=== PATIENT | female | born 1990 | race Caucasian/White ===

== ENCOUNTER 2018-10-21 07:36 | Inpatient (IN) | payer OTHER ==
[2018-10-21] MEDS ORDERED: Ondansetron 4 MG/2 ML SDV IV PRN (08:22)
[2018-10-21] MEDS ORDERED: Misoprostol 400 MCG (4 X 100 MCG TAB) RECTAL PRN (08:22)
[2018-10-21] MEDS ORDERED: Tranexamic Acid 1,000 MG in Sodium Chloride 0.9% 100 ML IV PRN (08:22)
[2018-10-21] MEDS ORDERED: Lidocaine 1% 30 ML SDV INJECT PRN (08:22)
[2018-10-21] MEDS ORDERED: Sodium Chloride 0.9% 10 ML Syringe FLUSH PRN (08:22)
[2018-10-21] MEDS ORDERED: Carboprost Tromethamine 250 MCG/1 ML Amp IM PRN (08:22)
[2018-10-21] MEDS ORDERED: fentaNYL 100 MCG/2 ML SDV IVPUSH PRN (08:22)
[2018-10-21] MEDS ORDERED: Methylergonovine 0.2 MG/1 ML Amp IM PRN (08:22)
[2018-10-21] MEDS ORDERED: Lactated Ringers 500 ML IV ONE (08:22)
[2018-10-21] MEDS ORDERED: Buprenorphine 8 MG Tab.SL SL PRN (08:25)
--- NOTE | 2018-10-21 08:26 | PCM.LDHP ---
L&D History of Present Illness - General Date of Service: 10/21/18 Admit Problem/Dx: Patient Status Order with Admit Dx/Problem 10/21/18 08:22 Patient Status [ADT] Routine Admission Diagnosis/Problem Admission Diagnosis/Problem care Source of Information: Patient History Limitations: Reports: No Limitations - History of Present Illness Introduction:: 28-year-old at 39w1d presents to L&D for elective IOL at term. Patient is feeling well. She does continue to feel some [employer] [place] contractions off and on. Baby has been active. No new vaginal leaking or bleeding. was complicated by poor weight gain in the 1st and 2nd trimester, low lying placenta (resolved), Rh negative status, and suboxone therapy in . Patient is currently taking 12-16 mg suboxone daily. I have spoke to her suboxone provider regarding management intrapartum and . - Related Data Allergies/Adverse Reactions: Allergies Allergy/AdvReac Type Severity Reaction Status Date / Time No Known Allergies Allergy Verified 10/21/18 09:15 Home Medications: Home Meds Buprenorphine HCl 8 mg SL DAILY 09/01/18 [History] Pnv No.122/Iron/Folic Acid [ Multi Tablet] 1 each PO DAILY 09/01/18 [ History] Sertraline [Zoloft] 50 mg PO DAILY 09/01/18 [History] Acetaminophen [Tylenol] 650 mg PO Q4HR 10/21/18 [History] Past Medical History Respiratory History: Reports: Other (See Below) Other Respiratory History: reactive airway disease ANIMAL NURSE History: Reports: , Other (See Below) Other OB/BYN History: ovarian cyst, like endometrioma, fibrocystic breast Musculoskeletal History: Reports: Fibromyalgia, RA, Other (See Below) Other Musculoskeletal History: DDD, lumbar facet arthropathy, coccyx fx, displacement of lumbar disc without myelopathy Neurological History: Reports: Migraines Psychiatric History: Reports: Anxiety - Past Surgical History Female Surgical History: Reports: Other (See Below) Other Female Surgeries/Procedures: abnormal pap Neurological Surgical History: Reports: Other (See Below) Other Neurological Surgeries/Procedures: sciatica pain Social & Family History - Caffeine Use Caffeine Use: Reports: Soda - Living Situation & Occupation Living situation: Reports: Occupation: Employed H&P Review of Systems - Review of Systems: Review Of Systems: See Below General: Reports: No Symptoms HEENT: Reports: No Symptoms Pulmonary: Reports: No Symptoms Cardiovascular: Reports: No Symptoms Gastrointestinal: Reports: No Symptoms Genitourinary: Reports: No Symptoms Musculoskeletal: Reports: No Symptoms Skin: Reports: No Symptoms L&D Exam - Exam Exam: See Below - OB Specific Fundal Height In cm: 38 Contraction Intensity: Mild Movement: Active Heart Tones: Present Heart Tones per Min: 135 Heart Rate (FHR) Variability: Moderate (6-25 bmp) Presentation: Vertex - Robison Score Robison Score Cervix Position: Midposition Robison Score Consistency: Soft Robison Score Effacement: >80% Robison Score Dilation: 3-4 cm Robison Score 's Station: -1 ,0 Robison Score Total: 10 - Exam General: Alert, Oriented Lungs: Clear to Auscultation, Normal Respiratory Effort Cardiovascular: Regular Rate, Regular Rhythm. No: Systolic Murmur, Diastolic Murmur GI/Abdominal Exam: Soft Genitourinary: Normal external exam Extremities: No Pedal Edema Skin: Warm, Dry, Intact Psychiatric: Alert, Normal Affect, Normal Mood - Patient Data Result Diagrams: 10/21/18 07:54 - Problem List (1) care in third trimester SNOMED Code(s): 037264114, 82905374, 23266981, 362737360, 242506684 ICD Code: Z34.93 - ENCNTR FOR SUPRVSN OF NORMAL PREG, UNSP, THIRD TRIMESTER Status: Acute Current Visit: Yes (2) Rh negative state in antepartum period SNOMED Code(s): 454185340 ICD Code: O26.899 - OTH RELATED CONDITIONS, UNSPECIFIED TRIMESTER; Z67.91 - UNSPECIFIED BLOOD TYPE, RH NEGATIVE Status: Acute Current Visit: Yes (3) Suboxone maintenance treatment complicating , antepartum SNOMED Code(s): 691851774, 151742979 ICD Code: O99.320 - DRUG USE COMPLICATING , UNSPECIFIED TRIMESTER; F11.20 - OPIOID DEPENDENCE, UNCOMPLICATED Status: Acute Current Visit: Yes Problem List Initiated/Reviewed/Updated: Yes Orders Last 24hrs: Active Orders 24 hr Category Date Time Status Patient Status [ADT] Routine ADT 10/21/18 08:22 Ordered Communication Order [RC] ASDIRECTED Care 10/21/18 08:22 Ordered Heart Tones [RC] PER UNIT ROUTINE Care 10/21/18 08:22 Ordered Notify Provider Vital Signs OB [RC] ASDIRECTED Care 10/21/18 08:22 Ordered Notify Provider [RC] PRN Care 10/21/18 08:22 Ordered Pump Management, Intrathecal [RC] ASDIRECTED Care 10/21/18 08:22 Ordered Up ad Ashly [RC] ASDIRECTED Care 10/21/18 08:22 Ordered Vital Signs [RC] PER UNIT ROUTINE Care 10/21/18 08:22 Ordered Regular Diet [DIET] Diet 10/21/18 Lunch Ordered CBC W/O DIFF,HEMOGRAM [HEME] Routine Lab 10/21/18 08:22 Ordered Acetaminophen [Tylenol] Med 10/21/18 08:22 Ordered 650 mg PO Q4H PRN Buprenorphine [Subutex] Med 10/21/18 08:25 Ordered 4 mg SL Q6H PRN Carboprost Tromethamine [Hemabate DS] Med 10/21/18 08:22 Ordered 250 mcg IM ASDIRECTED PRN Lactated Ringers @ 125 MLS/HR(1000ml) Med 10/21/18 08:30 Ordered Lactated Ringers [Ringers, Lactated] 1,000 ml IV ASDIRECTED Lactated Ringers [Ringers, Lactated] 500 ml Med 10/21/18 08:22 Ordered IV .BOLUS Lidocaine 1% [Xylocaine-MPF 1%] Med 10/21/18 08:22 Ordered 30 ml INJECT ASDIRECTED PRN Methylergonovine [Methergine] Med 10/21/18 08:22 Ordered 0.2 mg IM ASDIRECTED PRN Ondansetron [Zofran] Med 10/21/18 08:22 Ordered 4 mg IV Q4H PRN Oxytocin 30 Units in NS @ 2 MUNITS/MIN(500ml) Med 10/21/18 08:30 Ordered Oxytocin/Normal Saline [Pitocin in NS 30 UNIT/500 ML] 30 unit in 500 ml IV TITRATE Sodium Chloride 0.9% [Saline Flush] Med 10/21/18 08:22 Ordered 10 ml FLUSH ASDIRECTED PRN Tranexamic Acid [Cyklokapron] 1,000 mg Med 10/21/18 08:22 Ordered Sodium Chloride 0.9% [Normal Saline] 100 ml IV ONETIME fentaNYL [Sublimaze] Med 10/21/18 08:22 Ordered 100 mcg IVPUSH Q1H PRN miSOPROStol [Cytotec] Med 10/21/18 08:22 Ordered 800 mcg RECTAL ASDIRECTED PRN Saline Lock Insert [OM.PC] Routine Oth 10/21/18 08:22 Ordered Resuscitation Status Routine Resus Stat 10/21/18 08:22 Ordered Medication Orders Acetaminophen (Tylenol) 650 mg PO Q4H PRN PRN Reason: Pain (Mild 1-3) and fever Carboprost Tromethamine (Hemabate Ds) 250 mcg IM ASDIRECTED PRN PRN Reason: HEMORRHAGE Fentanyl (Sublimaze) 100 mcg IVPUSH Q1H PRN PRN Reason: Pain (moderate 4-6) Lactated Ringer's (Ringers, Lactated) 500 mls @ 999 mls/hr IV .BOLUS ONE Stop: 10/21/18 08:52 Lactated Ringer's (Ringers, Lactated) 1,000 mls @ 125 mls/hr IV ASDIRECTED ZACKARY Lidocaine HCl (Xylocaine-Mpf 1%) 30 ml INJECT ASDIRECTED PRN PRN Reason: Perineal Repair Methylergonovine Maleate (Methergine) 0.2 mg IM ASDIRECTED PRN PRN Reason: Hemorrhage Misoprostol (Cytotec) 800 mcg RECTAL ASDIRECTED PRN PRN Reason: Hemorrhage Assessment/Plan Comment:: 28-year-old at 39w3d presenting for elective IOL 1. Initiate routine intrapartum orders 2. Initiate pitocin per protocol for induction of labor. Plan AROM when able. 3. For pain control, buprenorphine 4 mg every 6 hours as needed. Patient did take morning dose fo Suboxone. No Nubain for pain control. Fentanyl 100 mcg every hour. Patient may have intrathecal. 4. Expectant management. Anticipate . Nataliia Garcia MD
[2018-10-21] MEDS ORDERED: Lactated Ringers 1,000 ML IV SCH (08:30)
[2018-10-21] MEDS ORDERED: Oxytocin/Normal Saline 30 UNIT/500 ML BAG IV SCH (08:30)
[2018-10-21] MEDS: Acetaminophen 325 MG Tab PO PRN (15:19)
--- NOTE | 2018-10-21 16:13 | PCM.DEL ---
L & D Note - General Info Date of Service: 10/21/18 Mother's Due Date: 10/25/18 - Delivery Note Labor: Augmented by ARM, Induced by Oxytocin Cervical Ripening Method: Oxytocin Delivery Outcome: Livebirth Delivery Method: Spontaneous Vaginal Delivery-Single Infant Delivery Mode: Vacuum Extraction Presentation: Vertex Nuchal Cord: None Anesthesia Type: Local Anesthetic: Lidocaine (Xylocaine) 1% Plain Local Anesthetic Volume: Other (8 cc) Amniotic Fluid Description: Clear Episiotomy Type: None Laceration: 2nd Degree, Perineal Suture type: Vicryl Suture size: 3-0 Placenta: Intact, Spontaneous Cord: 3 Vessels Estimated Blood Loss: 300 Resuscitation Needed: Yes : Bulb Syringe, Stimulated, Warmed, Warmer Used Provider: Nataliia Garcia Score 1 min: 6 Score 5 min: 8 Delivery Comments (Free Text/Narrative):: 28-year-old, presented to L&D for IOL at 0730 due to history of complicated 2nd degree laceration repair with both previous deliveries. Pitocin was used for induction of labor. AROM was performed at 1225 for moderate amount of clear fluid. Patient rapidly progressed to complete dilation at 1330. Patient pushed for 20 minutes total. While baby was , decreased heart tones were noted and persisted fro >1 minutes. Thererfore, Kiwi vacuum was applied and used with one contraction to facilitate delivery. The anterior should delivered with some difficulty, then the rest of the body delivered very rapidly. was initially placed on mother's chest but needed further resuscitation so the cord was clamped x2 and cut, and baby was taken to the warmer. Apgars were noted to be 6 and 8 at 1 and 5 minutes respectively. Cord blood was collected. Perineum was inspected and a 2nd degree perineal laceration was noted. 8 mL of 1% lidocaine was used for anesthetic. The placenta then delivered spontaneously and intact. Uterus was noted to be firm. 2nd degree laceration was repaired in the usual fashion. Posterior aspect of the vaginal was noted to have moderate swelling. Uterus was again palpated and noted to be firm. Bleeding was appropriate. Patient tolerated the procedure well, and there were no immediate complications. Induction Criteria - Robison Score Robison Score Dilation: 3-4 cm Robison Score Effacement: >80% Robison Score Infant's Station: -1 ,0 Robison Score Consistency: Soft Robison Score Cervix Position: Midposition Robison Score Total: 10 Robison Score Presenting Part: Reports: Cephalic - Induction Gestational Age >/= 39 wks: Yes Estimated Pelvis: Reports: Adequate Reassuring Monitoring Strip: Yes Absence of Tachy Systole: Yes - Augmentation Estimated Pelvis: Reports: Adequate Weight Estimated:: Reports: AGA Reassuring Monitoring Strip: Yes Absence of Tachy Systole: Yes Vacuum Extractor Progress Note - Alternative Labor Strategies Considered Alternative Labor Strategies Considered:: Reports: No Indications Considered:: Reports: Yes Indications:: Reports: Suspicion of Immediate or Potential Compromise - Patient Prepared Patient Prepared:: Reports: Yes Informed Consent:: Reports: Verbal Risks: Reports: Yes Risks Include:: Reports: Laceration, Shoulder Dystocia, Maternal Injury - Probability of Success High Probability of Success:: Reports: Yes Weight Estimated:: Reports: AGA Patient Diabetic:: Reports: No Pelvis Adequate:: Reports: Yes Asynclitic:: Reports: No - Application Time Maximum Application Time & Number of Pop-Offs Predetermined:: Reports: Yes (3) Total Application Time (min): *max=20min: 2 Number of Times Cup Disengaged:: 1 Type of Vacuum Used:: Reports: Cup: Cronin type Vacuum Extraction: Successful - Exit Strategy Exit strategy available:: Reports: Yes and resuscitation teams readily available:: Reports: Yes - General Info Date of Service: 10/21/18 - Patient Data Vitals - Most Recent: Last Vital Signs Temp 36.1 C 10/21/18 13:39 Pulse 55 L 10/21/18 15:01 Resp 16 10/21/18 15:01 BP 115/80 10/21/18 15:01 Pulse Ox Weight - Most Recent: 69.4 kg I&O - Last 24 Hours: Intake & Output 10/21/18 10/21/18 10/21/18 06:59 14:59 22:59 Intake Total 1000 Balance 1000 Lab Results Last 24 Hours: Laboratory Results - last 24 hr 10/21/18 10/21/18 Range/Units 07:54 09:45 WBC 8.3 (5.0-10.0) 10^3/uL RBC 3.96 L (4.2-5.4) 10^6/uL Hgb 12.7 (12.0-16.0) g/dL Hct 37.5 (37.0-47.0) % MCV 94.7 D (80-100) fL MCH 32.1 (27.0-34.0) pg MCHC 33.9 (33.0-35.0) g/dL Plt Count 172 D (150-450) 10^3/uL Urine Opiates Screen Negative (NEGATIVE) Ur Oxycodone Screen Negative (NEGATIVE) Urine Methadone Screen Negative (NEGATIVE) Ur Barbiturates Screen Negative (NEGATIVE) U Tricyclic Antidepress Negative (NEGATIVE) Ur Phencyclidine Scrn Negative (NEGATIVE) Ur Amphetamine Screen Negative (NEGATIVE) U Methamphetamines Scrn Negative (NEGATIVE) Urine MDMA Screen Negative (NEGATIVE) U Benzodiazepines Scrn Negative (NEGATIVE) Urine Cocaine Screen Negative (NEGATIVE) U Marijuana (THC) Screen Negative (NEGATIVE) Med Orders - Current: Current Medications Acetaminophen (Tylenol) 650 mg PO Q4H PRN PRN Reason: Pain (Mild 1-3) and fever Last Admin: 10/21/18 15:19 Dose: 650 mg Buprenorphine (Subutex) 4 mg SL Q6H PRN PRN Reason: Pain Last Admin: 10/21/18 15:20 Dose: 4 mg Carboprost Tromethamine (Hemabate Ds) 250 mcg IM ASDIRECTED PRN PRN Reason: HEMORRHAGE Fentanyl (Sublimaze) 100 mcg IVPUSH Q1H PRN PRN Reason: Pain (moderate 4-6) Last Admin: 10/21/18 13:06 Dose: 100 mcg Lactated Ringer's (Ringers, Lactated) 1,000 mls @ 125 mls/hr IV ASDIRECTED ZACKARY Last Admin: 10/21/18 08:42 Dose: 125 mls/hr Oxytocin/Sodium Chloride (Pitocin In Ns 30 Unit/500 Ml) 30 unit in 500 mls @ 2 mls/hr IV TITRATE ZACKARY; Protocol Last Titration: 10/21/18 15:05 Dose: 125 munits/min, 125 mls/hr Tranexamic Acid 1,000 mg/ (Sodium Chloride) 110 mls @ 660 mls/hr IV ONETIME PRN PRN Reason: Bleeding Lidocaine HCl (Xylocaine-Mpf 1%) 30 ml INJECT ASDIRECTED PRN PRN Reason: Perineal Repair Last Admin: 10/21/18 14:03 Dose: 10 ml Methylergonovine Maleate (Methergine) 0.2 mg IM ASDIRECTED PRN PRN Reason: Hemorrhage Misoprostol (Cytotec) 800 mcg RECTAL ASDIRECTED PRN PRN Reason: Hemorrhage Ondansetron HCl (Zofran) 4 mg IV Q4H PRN PRN Reason: Nausea/Vomiting Sodium Chloride (Saline Flush) 10 ml FLUSH ASDIRECTED PRN PRN Reason: Keep Vein Open Discontinued Medications Lactated Ringer's (Ringers, Lactated) 500 mls @ 999 mls/hr IV .BOLUS ONE Stop: 10/21/18 08:52 - Problem List & Annotations (1) care in third trimester SNOMED Code(s): 166106350, 26863948, 46830485, 916191391, 335270499 Code(s): Z34.93 - ENCNTR FOR SUPRVSN OF NORMAL PREG, UNSP, THIRD TRIMESTER Status: Acute Current Visit: Yes (2) Rh negative state in antepartum period SNOMED Code(s): 470635298 Code(s): O26.899 - OTH RELATED CONDITIONS, UNSPECIFIED TRIMESTER; Z67.91 - UNSPECIFIED BLOOD TYPE, RH NEGATIVE Status: Acute Current Visit: Yes (3) Suboxone maintenance treatment complicating , antepartum SNOMED Code(s): 712787543, 682001902 Code(s): O99.320 - DRUG USE COMPLICATING , UNSPECIFIED TRIMESTER; F11.20 - OPIOID DEPENDENCE, UNCOMPLICATED Status: Acute Current Visit: Yes (4) Status post vacuum-assisted vaginal delivery SNOMED Code(s): 419292295, 63158675036150199 Code(s): Z87.59 - PERSONAL HISTORY OF COMP OF PREG, CHLDBRTH AND THE PUERP Status: Acute Current Visit: Yes (5) Perineal laceration during delivery, delivered SNOMED Code(s): 983959992 Code(s): O70.9 - PERINEAL LACERATION DURING DELIVERY, UNSPECIFIED Status: Acute Current Visit: Yes - Problem List Review Problem List Initiated/Reviewed/Updated: Yes - My Orders Last 24 Hours: My Active Orders 10/21/18 08:22 Patient Status [ADT] Routine Notify Provider Vital Signs OB [RC] ASDIRECTED Notify Provider [RC] PRN Up ad Ashly [RC] ASDIRECTED Vital Signs [RC] 08,20 Acetaminophen [Tylenol] 650 mg PO Q4H PRN Carboprost Tromethamine [Hemabate DS] 250 mcg IM ASDIRECTED PRN Lidocaine 1% [Xylocaine-MPF 1%] 30 ml INJECT ASDIRECTED PRN Methylergonovine [Methergine] 0.2 mg IM ASDIRECTED PRN Ondansetron [Zofran] 4 mg IV Q4H PRN Sodium Chloride 0.9% [Saline Flush] 10 ml FLUSH ASDIRECTED PRN Tranexamic Acid [Cyklokapron] 1,000 mg Sodium Chloride 0.9% [Normal Saline] 100 ml IV ONETIME fentaNYL [Sublimaze] 100 mcg IVPUSH Q1H PRN miSOPROStol [Cytotec] 800 mcg RECTAL ASDIRECTED PRN Saline Lock Insert [OM.PC] Routine Resuscitation Status Routine 10/21/18 08:25 Buprenorphine [Subutex] 4 mg SL Q6H PRN 10/21/18 08:30 Lactated Ringers [Ringers, Lactated] 1,000 ml IV ASDIRECTED Oxytocin/Normal Saline [Pitocin in NS 30 UNIT/500 ML] 30 unit in 500 ml IV TITRATE 10/21/18 09:00 Communication Order [RC] PER UNIT ROUTINE 10/21/18 Lunch Regular Diet [DIET] - Assessment Assessment:: 28-year-old, now , status post VAVD at 39w3d - Plan Plan:: 1. Initiate routine orders 2. Plans to breastfeed 3. For pain control, Tylenol and ibuprofen as scheduled. Suboxone 4 mg every 4- 6 hours with a max dose of 24 mg in 24 hours. 4. Anticipate discharge 10/23/18. Nataliia Garcia MD
[2018-10-21] MEDS ORDERED: Simethicone 80 MG Tab.Chew PO PRN (16:21)
[2018-10-21] MEDS ORDERED: Benzocaine/Menthol 20%-0.5% Spray 56 GM Canister TOP PRN (16:21)
[2018-10-21] MEDS ORDERED: Oxytocin 10 Units/1 ML SDV IM PRN (16:21)
[2018-10-21] MEDS: Docusate Sodium 100 MG Cap PO PRN (18:03)
[2018-10-21] MEDS: Ibuprofen 800 MG Tab PO PRN (18:03)
[2018-10-22] MEDS: Acetaminophen 325 MG Tab PO PRN ×3 (01:05→19:56)
--- NOTE | 2018-10-22 05:39 | PCM.PNPP ---
- General Info Date of Service: 10/22/18 Subjective Update: 28-year-old PPD#1 status post VAVD after IOL at 39w3d. Patient is doing well. Some back pain and cramping, especially with . Bleeding has been slowing down. Ambulating without difficulty. Tolerating a general diet. No dizziness, lightheadedness, fever or chills. has been a struggle to maintain good latch. Does complain of nipple pain. Has done some SNS at the breast. No concerns per patient or per nursing staff. Functional Status: Reports: Pain Controlled, Tolerating Diet, Ambulating, Urinating - Review of Systems General: Reports: No Symptoms HEENT: Reports: No Symptoms Pulmonary: Reports: No Symptoms Cardiovascular: Reports: No Symptoms Gastrointestinal: Reports: Other (Cramping with ) Genitourinary: Reports: No Symptoms Musculoskeletal: Reports: Back Pain Skin: Reports: No Symptoms - General Info Date of Service: 10/22/18 - Patient Data Vital Signs - Most Recent: Last Vital Signs Temp 36.7 C 10/21/18 19:41 Pulse 59 L 10/21/18 19:41 Resp 18 10/21/18 19:41 BP 123/76 10/21/18 19:41 Pulse Ox Weight - Most Recent: 69.4 kg I&O - Last 24 Hours: Intake & Output 10/21/18 10/21/18 10/22/18 14:59 22:59 06:59 Intake Total 1000 1500 Output Total 700 Balance 1000 800 Lab Results - Last 24 Hours: Laboratory Results - last 24 hr 10/21/18 10/21/18 Range/Units 07:54 09:45 WBC 8.3 (5.0-10.0) 10^3/uL RBC 3.96 L (4.2-5.4) 10^6/uL Hgb 12.7 (12.0-16.0) g/dL Hct 37.5 (37.0-47.0) % MCV 94.7 D (80-100) fL MCH 32.1 (27.0-34.0) pg MCHC 33.9 (33.0-35.0) g/dL Plt Count 172 D (150-450) 10^3/uL Urine Opiates Screen Negative (NEGATIVE) Ur Oxycodone Screen Negative (NEGATIVE) Urine Methadone Screen Negative (NEGATIVE) Ur Barbiturates Screen Negative (NEGATIVE) U Tricyclic Antidepress Negative (NEGATIVE) Ur Phencyclidine Scrn Negative (NEGATIVE) Ur Amphetamine Screen Negative (NEGATIVE) U Methamphetamines Scrn Negative (NEGATIVE) Urine MDMA Screen Negative (NEGATIVE) U Benzodiazepines Scrn Negative (NEGATIVE) Urine Cocaine Screen Negative (NEGATIVE) U Marijuana (THC) Screen Negative (NEGATIVE) Med Orders - Current: Current Medications Acetaminophen (Tylenol) 650 mg PO Q4H PRN PRN Reason: Pain (Mild 1-3) and fever Last Admin: 10/22/18 01:05 Dose: 650 mg Benzocaine/Menthol (Dermoplast Pain Relief [place]) 0 gm TOP Q4H PRN PRN Reason: Perineal comfort measures Last Admin: 10/21/18 18:03 Dose: 1 spray Buprenorphine (Subutex) 4 mg SL Q4H PRN PRN Reason: Withdrawal Symptoms Carboprost Tromethamine (Hemabate Ds) 250 mcg IM ASDIRECTED PRN PRN Reason: HEMORRHAGE Docusate Sodium (Colace) 100 mg PO BID PRN PRN Reason: Constipation Last Admin: 10/21/18 18:03 Dose: 100 mg Oxytocin/Sodium Chloride (Pitocin In Ns 30 Unit/500 Ml) 30 unit in 500 mls @ 2 mls/hr IV TITRATE ZACKARY; Protocol Last Titration: 10/21/18 16:13 Dose: Infused Tranexamic Acid 1,000 mg/ (Sodium Chloride) 110 mls @ 660 mls/hr IV ONETIME PRN PRN Reason: Bleeding Ibuprofen (Motrin) 800 mg PO Q8H PRN PRN Reason: Mild Pain or Fever Last Admin: 10/21/18 18:03 Dose: 800 mg Methylergonovine Maleate (Methergine) 0.2 mg IM ASDIRECTED PRN PRN Reason: Hemorrhage Misoprostol (Cytotec) 800 mcg RECTAL ASDIRECTED PRN PRN Reason: Hemorrhage Ondansetron HCl (Zofran) 4 mg IV Q4H PRN PRN Reason: Nausea/Vomiting Oxytocin (Pitocin) 10 unit IM ONETIME PRN PRN Reason: Bleeding Patient Own Medication (Ptom) 4 each PO Q4H [facility] Prenat Multivit/[place]/Iron/Folic Ac ( Plus Iron) 1 each PO DAILY [facility] Simethicone (Simethicone) 80 mg PO Q4H PRN PRN Reason: Gas Sodium Chloride (Saline Flush) 10 ml FLUSH ASDIRECTED PRN PRN Reason: Keep Vein Open Discontinued Medications Buprenorphine (Subutex) 4 mg SL Q6H PRN PRN Reason: Pain Last Admin: 10/21/18 15:20 Dose: 4 mg Fentanyl (Sublimaze) 100 mcg IVPUSH Q1H PRN PRN Reason: Pain (moderate 4-6) Last Admin: 10/21/18 13:06 Dose: 100 mcg Lactated Ringer's (Ringers, Lactated) 500 mls @ 999 mls/hr IV .BOLUS ONE Stop: 10/21/18 08:52 Last Admin: 10/21/18 18:26 Dose: Not Given Lactated Ringer's (Ringers, Lactated) 1,000 mls @ 125 mls/hr IV ASDIRECTED ZACKARY Last Admin: 10/21/18 08:42 Dose: 125 mls/hr Lidocaine HCl (Xylocaine-Mpf 1%) 30 ml INJECT ASDIRECTED PRN PRN Reason: Perineal Repair Last Admin: 10/21/18 14:03 Dose: 10 ml - Interaction Disposition, : in Room with Family Infant Interaction: Holding Infant Feeding: Attempted ; Nursed Fair/Poor Support Person: - Recovery Exam Fundal Tone: Firm Fundal Level: At Umbilicus Fundal Placement: Midline Lochia Amount: Scant Lochia Color: Rubra/Red Perineum Description: Intact, Minimal Bruising/Swelling Episiotomy/Laceration: Approximated Bladder Status: Nonpalpable Urinary Elimination: Voided - Exam General: Alert, Oriented Lungs: Clear to Auscultation, Normal Respiratory Effort Cardiovascular: Regular Rate, Regular Rhythm, No Murmurs Extremities: Normal Inspection, Pedal Edema (1+ to lower extremities bilaterally ) Skin: Warm, Dry, Intact - Problem List & Annotations (1) care in third trimester SNOMED Code(s): 498847782, 46816262, 57314571, 738863461, 231527950 Code(s): Z34.93 - ENCNTR FOR SUPRVSN OF NORMAL PREG, UNSP, THIRD TRIMESTER Status: Acute Current Visit: Yes (2) Rh negative state in antepartum period SNOMED Code(s): 357348014 Code(s): O26.899 - OTH RELATED CONDITIONS, UNSPECIFIED TRIMESTER; Z67.91 - UNSPECIFIED BLOOD TYPE, RH NEGATIVE Status: Acute Current Visit: Yes (3) Suboxone maintenance treatment complicating , antepartum SNOMED Code(s): 604766869, 016797809 Code(s): O99.320 - DRUG USE COMPLICATING , UNSPECIFIED TRIMESTER; F11.20 - OPIOID DEPENDENCE, UNCOMPLICATED Status: Acute Current Visit: Yes (4) Status post vacuum-assisted vaginal delivery SNOMED Code(s): 855941058, 72494766543750801 Code(s): Z87.59 - PERSONAL HISTORY OF COMP OF PREG, CHLDBRTH AND THE PUERP Status: Acute Current Visit: Yes (5) Perineal laceration during delivery, delivered SNOMED Code(s): 273578149 Code(s): O70.9 - PERINEAL LACERATION DURING DELIVERY, UNSPECIFIED Status: Acute Current Visit: Yes - Problem List Review Problem List Initiated/Reviewed/Updated: Yes - My Orders Last 24 Hours: My Active Orders 10/21/18 08:22 Patient Status [ADT] Routine Notify Provider Vital Signs OB [RC] ASDIRECTED Up ad Ashly [RC] ASDIRECTED Acetaminophen [Tylenol] 650 mg PO Q4H PRN Carboprost Tromethamine [Hemabate DS] 250 mcg IM ASDIRECTED PRN Methylergonovine [Methergine] 0.2 mg IM ASDIRECTED PRN Ondansetron [Zofran] 4 mg IV Q4H PRN Sodium Chloride 0.9% [Saline Flush] 10 ml FLUSH ASDIRECTED PRN Tranexamic Acid [Cyklokapron] 1,000 mg Sodium Chloride 0.9% [Normal Saline] 100 ml IV ONETIME miSOPROStol [Cytotec] 800 mcg RECTAL ASDIRECTED PRN Saline Lock Insert [OM.PC] Routine Resuscitation Status Routine 10/21/18 08:30 Oxytocin/Normal Saline [Pitocin in NS 30 UNIT/500 ML] 30 unit in 500 ml IV TITRATE 10/21/18 09:00 Communication Order [RC] PER UNIT ROUTINE 10/21/18 16:21 Vital Signs [RC] 08,20 Consult to Waste Management Specialist [CONS] Routine Benzocaine/Menthol [Dermoplast Pain Relief [place]] See Dose Instructions TOP Q4H PRN Docusate Sodium [Colace] 100 mg PO BID PRN Ibuprofen [Motrin] 800 mg PO Q8H PRN Oxytocin [Pitocin] 10 unit IM ONETIME PRN Simethicone 80 mg PO Q4H PRN Assess Lochia [WOMSER] Per Unit Routine Assess Uterine Involution [WOMSER] Per Unit Routine Breast Pump [WOMSER] Per Unit Routine Ice Therapy [OM.PC] Per Unit Routine Perineal Care [OM.PC] Per Unit Routine Sitz Bath [OM.PC] Per Unit Routine 10/21/18 16:30 Patient's Own Medication [Ptom] 4 each PO Q4H 10/21/18 17:43 Buprenorphine [Subutex] 4 mg SL Q4H PRN 10/21/18 18:18 RHOGAM, [RHIG WORKUP, ] [BBK] Routine 10/21/18 Lunch Regular Diet [DIET] 10/22/18 09:00 Vit with Ca/FA/Iron [ Plus Iron] 1 each PO DAILY - Assessment Assessment:: 28-year-old, now , PPD#1 status post VAVD at 39w3d - Plan Plan:: 1. Continue routine orders 2. . consult placed 3. For pain control, Tylenol and ibuprofen as scheduled. Suboxone 4 mg every 4- 6 hours with a max dose of 24 mg in 24 hours. 4. Anticipate discharge 10/23/18. Nataliia Garcia MD
[2018-10-22] MEDS: Ibuprofen 800 MG Tab PO PRN ×2 (06:25→17:43)
[2018-10-22] MEDS: Buprenorphine 8 MG Tab.SL SL PRN ×3 (06:26→17:43)
[2018-10-22] MEDS: Prenatal Multivitamin with Calcium/Folic Acid/Iron Tab PO SCH (12:06)
[2018-10-22] MEDS: Docusate Sodium 100 MG Cap PO PRN (12:08)
[2018-10-23] MEDS: Buprenorphine 8 MG Tab.SL SL PRN ×3 (01:35→13:48)
[2018-10-23] MEDS: Ibuprofen 800 MG Tab PO PRN ×3 (01:36→19:55)
--- NOTE | 2018-10-23 08:24 | PCM.DCSUM1 ---
Discharge Summary - Hospital Course Free Text/Narrative:: 28-year-old now PPD#2 status post VAVD at 39w3d gestation Diagnosis: Stroke: No - Discharge Data Discharge Date: 10/23/18 Discharge Disposition: Home, Self-Care 01 Condition: Good - Discharge Diagnosis/Problem(s) (1) care in third trimester SNOMED Code(s): 928020410, 43703288, 98828064, 391030145, 037321452 ICD Code: Z34.93 - ENCNTR FOR SUPRVSN OF NORMAL PREG, UNSP, THIRD TRIMESTER Status: Acute Current Visit: Yes (2) Rh negative state in antepartum period SNOMED Code(s): 964508874 ICD Code: O26.899 - OTH RELATED CONDITIONS, UNSPECIFIED TRIMESTER; Z67.91 - UNSPECIFIED BLOOD TYPE, RH NEGATIVE Status: Acute Current Visit: Yes (3) Suboxone maintenance treatment complicating , antepartum SNOMED Code(s): 742627299, 509675972 ICD Code: O99.320 - DRUG USE COMPLICATING , UNSPECIFIED TRIMESTER; F11.20 - OPIOID DEPENDENCE, UNCOMPLICATED Status: Acute Current Visit: Yes (4) Status post vacuum-assisted vaginal delivery SNOMED Code(s): 118318172, 82369492811891592 ICD Code: Z87.59 - PERSONAL HISTORY OF COMP OF PREG, CHLDBRTH AND THE PUERP Status: Acute Current Visit: Yes (5) Perineal laceration during delivery, delivered SNOMED Code(s): 084862391 ICD Code: O70.9 - PERINEAL LACERATION DURING DELIVERY, UNSPECIFIED Status: Acute Current Visit: Yes - Patient Summary/Data Operative Procedure(s) Performed: Vacuum-assisted vaginal delivery Complications: None Consults: Consultations 10/21/18 16:21 Consult to Patient Access Associate [CONS] Routine Labs Pending at D/C: None Recommended Follow-up Testing/Procedures: None Planned Operative Procedure(s) after DC: None Hospital Course: Unremarkable. Please see subjective section. - Patient Instructions Diet: Usual Diet as Tolerated Activity: As Tolerated, No Lifting Over 20 Pounds Driving: May Drive Today Showering/Bathing: May Shower Notify Provider of: Fever, Increased Pain, Swelling and Redness, Drainage, Nausea and/or Vomiting - Discharge Plan *PRESCRIPTION DRUG MONITORING PROGRAM REVIEWED*: Yes *COPY OF PRESCRIPTION DRUG MONITORING REPORT IN PATIENT CONI: No Home Medications: Home Meds Buprenorphine HCl 8 mg SL DAILY 09/01/18 [History] Pnv No.122/Iron/Folic Acid [ Multi Tablet] 1 each PO DAILY 09/01/18 [ History] Sertraline [Zoloft] 50 mg PO DAILY 09/01/18 [History] Acetaminophen [Tylenol] 650 mg PO Q4H PRN tablet 10/23/18 [Rx] Docusate Sodium [Colace] 100 mg PO BID PRN cap 10/23/18 [Rx] Ibuprofen [Motrin] 800 mg PO Q8H PRN tablet 10/23/18 [Rx] - Discharge Summary/Plan Comment DC Time >30 min.: No Discharge Summary/Plan Comment: Discharge patient today. She will remain in the hospital with her baby daughter , who will repeat hospitalized until tomorrow. She will resume her Suboxone upon discharge take 4 mg by mouth as needed every 4-6 hours with a max dose of 24 mg in 24 hours. Follow-up in 6-8 weeks for routine exam - General Info Date of Service: 10/23/18 Subjective Update: 28-year-old PPD#2 status post VAVD after IOL at 39w3d. Patient is doing well. Back pain has improved. Still some cramping with . Bleeding has been slowing down. Ambulating without difficulty. Tolerating a general diet. No dizziness, lightheadedness, fever or chills. has improved over he past 24 hours. No concerns per patient or per nursing staff. Functional Status: Reports: Pain Controlled, Tolerating Diet, Ambulating, Urinating. Denies: New Symptoms - Review of Systems General: Reports: No Symptoms HEENT: Reports: No Symptoms Pulmonary: Reports: No Symptoms Cardiovascular: Reports: No Symptoms Gastrointestinal: Reports: No Symptoms Genitourinary: Reports: No Symptoms Musculoskeletal: Reports: No Symptoms - Patient Data Vitals - Most Recent: Last Vital Signs Temp 36.7 C 10/22/18 20:00 Pulse 55 L 10/22/18 20:00 Resp 16 10/22/18 20:00 BP 119/69 10/22/18 20:00 Pulse Ox Weight - Most Recent: 69.4 kg Med Orders - Current: Current Medications Acetaminophen (Tylenol) 650 mg PO Q4H PRN PRN Reason: Pain (Mild 1-3) and fever Last Admin: 10/22/18 19:56 Dose: 650 mg Benzocaine/Menthol (Dermoplast Pain Relief [place]) 0 gm TOP Q4H PRN PRN Reason: Perineal comfort measures Last Admin: 10/21/18 18:03 Dose: 1 spray Buprenorphine (Subutex) 4 mg SL Q4H PRN PRN Reason: Withdrawal Symptoms Last Admin: 10/23/18 01:35 Dose: 4 mg Carboprost Tromethamine (Hemabate Ds) 250 mcg IM ASDIRECTED PRN PRN Reason: HEMORRHAGE Docusate Sodium (Colace) 100 mg PO BID PRN PRN Reason: Constipation Last Admin: 10/22/18 12:08 Dose: 100 mg Oxytocin/Sodium Chloride (Pitocin In Ns 30 Unit/500 Ml) 30 unit in 500 mls @ 2 mls/hr IV TITRATE ZACKARY; Protocol Last Titration: 10/21/18 16:13 Dose: Infused Tranexamic Acid 1,000 mg/ (Sodium Chloride) 110 mls @ 660 mls/hr IV ONETIME PRN PRN Reason: Bleeding Ibuprofen (Motrin) 800 mg PO Q8H PRN PRN Reason: Mild Pain or Fever Last Admin: 10/23/18 01:36 Dose: 800 mg Methylergonovine Maleate (Methergine) 0.2 mg IM ASDIRECTED PRN PRN Reason: Hemorrhage Misoprostol (Cytotec) 800 mcg RECTAL ASDIRECTED PRN PRN Reason: Hemorrhage Ondansetron HCl (Zofran) 4 mg IV Q4H PRN PRN Reason: Nausea/Vomiting Oxytocin (Pitocin) 10 unit IM ONETIME PRN PRN Reason: Bleeding Prenat Multivit/Motor Builder Assembler/Iron/Folic Ac ( Plus Iron) 1 each PO DAILY ZACKARY Last Admin: 10/22/18 12:06 Dose: 1 each Simethicone (Simethicone) 80 mg PO Q4H PRN PRN Reason: Gas Sodium Chloride (Saline Flush) 10 ml FLUSH ASDIRECTED PRN PRN Reason: Keep Vein Open Discontinued Medications Buprenorphine (Subutex) 4 mg SL Q6H PRN PRN Reason: Pain Last Admin: 10/21/18 15:20 Dose: 4 mg Fentanyl (Sublimaze) 100 mcg IVPUSH Q1H PRN PRN Reason: Pain (moderate 4-6) Last Admin: 10/21/18 13:06 Dose: 100 mcg Lactated Ringer's (Ringers, Lactated) 500 mls @ 999 mls/hr IV .BOLUS ONE Stop: 10/21/18 08:52 Last Admin: 10/21/18 18:26 Dose: Not Given Lactated Ringer's (Ringers, Lactated) 1,000 mls @ 125 mls/hr IV ASDIRECTED ZACKARY Last Admin: 10/21/18 08:42 Dose: 125 mls/hr Lidocaine HCl (Xylocaine-Mpf 1%) 30 ml INJECT ASDIRECTED PRN PRN Reason: Perineal Repair Last Admin: 10/21/18 14:03 Dose: 10 ml Patient Own Medication (Ptom) 4 each PO Q4H ZACKARY - Exam General: Reports: Alert, Oriented Lungs: Reports: Clear to Auscultation, Normal Respiratory Effort Cardiovascular: Reports: Regular Rate, Regular Rhythm, No Murmurs GI/Abdominal Exam: Soft Extremities: No Pedal Edema Skin: Reports: Warm, Dry, Intact
[2018-10-23] MEDS: Patient's Own Medication 1 Each PO SCH ×2 (08:40→08:41)
[2018-10-23] MEDS: Docusate Sodium 100 MG Cap PO PRN ×2 (09:38→19:55)
[2018-10-23] MEDS: Prenatal Multivitamin with Calcium/Folic Acid/Iron Tab PO SCH (09:38)
[2018-10-23] MEDS: Acetaminophen 325 MG Tab PO PRN ×2 (13:47→23:16)
[2018-10-24 01:01] VITALS: BP 122/69
== END 2018-10-23 23:45 | disposition home or self-care (01) | DRG 806 ==
LOC: DL.OBPROC 07:36 → DL.OB 08:22 → UNDOADMOB 08:29 → DL.OB 08:29 → OBSVTOIN 13:58 → DL.MS 10-23 01:33
PROVIDERS: ADMIT Family Medicine; ATTEND Family Medicine
PROC: 10D07Z6 Extraction of Products of Conception, Vacuum, Via Natural or Artificial Opening (ICD-10-PCS; principal; 2018-10-21)
PROC: 0KQM0ZZ Repair Perineum Muscle, Open Approach (ICD-10-PCS; 2018-10-21)
PROC: 3E033VJ Introduction of Other Hormone into Peripheral Vein, Percutaneous Approach (ICD-10-PCS; 2018-10-21)
PROC: 10907ZC Drainage of Amniotic Fluid, Therapeutic from Products of Conception, Via Natural or Artificial Opening (ICD-10-PCS; 2018-10-21)
DX: O99.324 Drug use complicating childbirth (principal); O36.0930 Maternal care for other rhesus isoimmunization, third trimester, not applicable or unspecified; Z37.0 Single live birth; F11.20 Opioid dependence, uncomplicated; Z3A.39 39 weeks gestation of pregnancy; O70.1 Second degree perineal laceration during delivery
CPT/HCPCS: 36415; 59409; 80305-QW; 85027; A9270-GY; J2001; J2590; J3010; J7120

== ENCOUNTER 2022-06-24 22:50 | Emergency (ER) | payer OTHER ==
[2022-06-25 01:02] VITALS: BP 161/104; PULSE 119
[2022-06-25 01:50] LABS: ANION GAP 18.8 mEq/L (7-13)
== END 2022-06-25 03:15 | disposition home or self-care (01) ==
LOC: DL.ED 22:50
DX: F10.90 Alcohol use, unspecified, uncomplicated (principal); J45.909 Unspecified asthma, uncomplicated; Y90.7 Blood alcohol level of 200-239 mg/100 ml
CPT/HCPCS: 36415; 80053; 80307; 81001; 82140; 83605; 83735; 84484; 85025; 93005; 93010; 99284; 99285

== ENCOUNTER 2023-07-16 19:59 | Emergency (ER) | payer BC, OTHER ==
[2023-07-16 20:44] LABS: BASOPHILS PERCENT AUTO 0.8 % (0.0-1.0); LYMPHOCYTES PERCENT AUTO 28.2 % (20.5-50.1); MEAN CORPUSCULAR HEMOGLOBIN 32.6 pg (27.0-34.0); MEAN CORPUSCULAR HGB CONC 33.3 g/dL (33.0-35.0); MEAN CORPUSCULAR VOLUME 97.7 fL (80-100); MONOCYTES PERCENT AUTO 6.7 % (2-8); NEUTROPHILS PERCENT AUTO 63.3 % (42.2-75.2); PLATELET COUNT,PLT 318 10^3/uL (150-450); WHITE BLOOD CELL COUNT,WBC 7.9 10^3/uL (5.0-10.0)
[2023-07-16 20:48] LABS: APPEARANCE,URINE CLEAR (CLEAR); BILIRUBIN,URINE NEGATIVE (NEGATIVE); COLOR,URINE YELLOW (YELLOW); GLUCOSE,URINE NEGATIVE (NEGATIVE); KETONES,URINE NEGATIVE (NEGATIVE); LEUKOCYTE ESTERASE,URINE TRACE (NEGATIVE); NITRITE,URINE NEGATIVE (NEGATIVE); OCCULT BLOOD,URINE NEGATIVE (NEGATIVE); PH,URINE 6.5 (5.0-9.0); PROTEIN,URINE NEGATIVE (NEGATIVE); UROBILINOGEN,URINE 0.2 mg/dL (0.2-1.0)
[2023-07-16 20:50] LABS: AMPHETAMINES,URINE NEGATIVE (NEGATIVE); BARBITURATES,URINE NEGATIVE (NEGATIVE); BENZODIAZEPINE,URINE NEGATIVE (NEGATIVE); MDMA (ECSTASY), URINE NEGATIVE (NEGATIVE); METHADONE,URINE NEGATIVE (NEGATIVE); METHAMPHETAMINES,URINE NEGATIVE (NEGATIVE); OPIATES,URINE NEGATIVE (NEGATIVE); OXYCODONE,URINE NEGATIVE (NEGATIVE); PHENCYCLIDINE,URINE NEGATIVE (NEGATIVE); TCA,URINE NEGATIVE (NEGATIVE)
[2023-07-16 21:04] LABS: BACTERIA,URINE FEW /HPF (0-FEW/HPF); EPITHELIAL CELLS,URINE FEW /HPF (NOT SEEN); RBC,URINE 0-5 /HPF (0-5)
[2023-07-16 21:05] LABS: A/G RATIO 1.1; ALANINE AMINOTRANSFERASE,ALT 92 U/L (14-59); ALBUMIN 4.3 g/dL (3.4-5.0); ALKALINE PHOSPHATASE 132 U/L (46-116); ANION GAP 17.9 mEq/L (7-13); ASPARTATE AMNIOTRANSFERASE,AST 132 U/L (15-37); BILIRUBIN TOTAL 1.1 mg/dL (0.2-1.0); BLOOD UREA NITROGEN,BUN 8 mg/dL (7-18); BUN/CREATININE RATIO 10.1 (No establ ref range); CARBON DIOXIDE,CO2 26 mmol/L (21-32); CHLORIDE,CL 99 mmol/L (98-107); CREATININE 0.79 mg/dL (0.55-1.02); ETHANOL BLOOD MEDICAL 188 mg/dL (0); GLUCOSE RANDOM 151 mg/dL (70-99); MAGNESIUM 2.2 mg/dL (1.8-2.4); POTASSIUM,K 3.9 mmol/L (3.5-5.1); PROTEIN TOTAL,TP 8.1 g/dL (6.4-8.2); SODIUM,NA 139 mmol/L (136-145)
[2023-07-16 21:06] LABS: ESTIMATED GFR 100 mL/min (>=60)
[2023-07-16 21:55] VITALS: BP 128/89; PULSE 98
== END 2023-07-16 22:02 | disposition home or self-care (01) ==
LOC: DL.ED 19:59
DX: Z02.89 Encounter for other administrative examinations (principal); F10.10 Alcohol abuse, uncomplicated; R03.0 Elevated blood-pressure reading, without diagnosis of hypertension; R94.5 Abnormal results of liver function studies; Z79.899 Other long term (current) drug therapy
CPT/HCPCS: 36415; 80053; 80305-QW; 80307; 81001; 81025; 83735; 85025; 87086; 99283